=== PATIENT | male | born 1980 | race Caucasian/White ===

== ENCOUNTER 2019-08-08 13:31 | Inpatient (IN) | payer MEDICAID ==
[~2019-08-08] VITALS: Ht 193 cm; Wt 100.6 kg
[2019-08-08] MEDS ORDERED: LORazepam 2 MG/ML, 1ML ONE (15:07)
[2019-08-08] MEDS ORDERED: MORPHINE SULFATE 4 MG/ML, 1ML ONE (15:07)
[2019-08-08] MEDS ORDERED: LORazepam 2 MG/ML, 1ML IVPush STA (15:12)
[2019-08-08] MEDS ORDERED: MORPHINE SULFATE 4 MG/ML, 1ML IV PRN (15:30)
[2019-08-08] MEDS ORDERED: SODIUM CHLORIDE FLUSH 10ML SYR IVF ONE (15:30)
--- NOTE | 2019-08-08 15:39 | NUR ---
IV STARTED, LABS DRAWN, AT BEDSIDE. PT MEDICATED PER MAR. DENIES ANY FURTHER NEEDS OR CONCERNS AT THIS TIME.
[2019-08-08 15:57] LABS: BASOPHILS # (AUTO) 0.08 x10^3/uL (0-0.1); BASOPHILS % (AUTO) 1 % (0-1); EOSINOPHILS # (AUTO) 0.24 x10^3/uL (0-0.4); EOSINOPHILS % (AUTO) 2 % (1-7); LYMPHOCYTES # (AUTO) 3.11 x10^3/uL (1-3.4); LYMPHOCYTES % (AUTO) 20 % (22-44); MD NO; MEAN CORPUSCULAR HEMOGLOBIN 29.5 pg (27.5-34.5); MEAN CORPUSCULAR HGB CONC 33.1 g/dL (33.2-36.2); MEAN CORPUSCULAR VOLUME 89.1 fL (81-97); MEAN PLATELET VOLUME 6.9 fL (7.4-10.4); MONOCYTES # (AUTO) 0.95 x10^3/uL (0.2-0.8); MONOCYTES % (AUTO) 6 % (2-9); NEUTROPHILS # (AUTO) 10.99 x10^3/uL (1.8-6.8); NEUTROPHILS % (AUTO) 72 % (42-75); PLATELET COUNT 340 x10^3/uL (130-400); RED BLOOD COUNT 5.37 x10^6/uL (4.38-5.82); RED CELL DISTRIBUTION WIDTH 13.2 % (9.4-14.8)
[2019-08-08 16:07] LABS: ALBUMIN 3.9 g/dL (3.4-5.0); ANION GAP 7 mmol/L (5-15); CALCIUM 9.2 mg/dL (8.5-10.1); CHLORIDE 106 mmol/L (98-107)
[2019-08-08 16:08] LABS: CREATININE 1.01 mg/dL (0.7-1.3)
[2019-08-08] MEDS ORDERED: POLYETHYLENE GLYCOL 17 GM PACKET PO PRN (17:00)
[2019-08-08] MEDS ORDERED: ONDANSETRON ODT 4 MG PO PRN (17:00)
[2019-08-08] MEDS ORDERED: ONDANSETRON 2MG/ML, 2ML IVPush PRN (17:00)
--- NOTE | 2019-08-08 17:04 | NUR ---
PT IN BED, RESTING AT THIS TIME. DENIES ANY NEEDS OR CONCERNS.
--- NOTE | 2019-08-08 17:25 | NUR ---
REPORT CALLED TO ART SEWELL RN.
[2019-08-08 17:45] LABS: HCT (SEDRATE) 47.4 % (39.2-51.8)
[2019-08-08] MEDS: HYDROcodone/APAP 5/325 TABLET PO PRN (17:54)
[2019-08-08 20:00] VITALS: BP 124/80
[2019-08-08] MEDS: IBUPROFEN 200 MG TABLET PO SCH (20:52)
[2019-08-08] MEDS: NICOTINE 14MG/24 HR PATCH.TD24 TD SCH (20:52)
[2019-08-08] MEDS: ENOXAPARIN 40 MG/0.4 ML SQ SCH (20:52)
[2019-08-08] MEDS: PIPERACILLIN/TAZO/PMX 3.375GM 50 ML IV SCH (20:55)
[2019-08-09 02:48] VITALS: BP 118/58
[2019-08-09] MEDS: PIPERACILLIN/TAZO/PMX 3.375GM 50 ML IV SCH ×3 (04:54→22:10)
[2019-08-09 05:31] LABS: BASOPHILS # (AUTO) 0.05 x10^3/uL (0-0.1); BASOPHILS % (AUTO) 1 % (0-1); EOSINOPHILS # (AUTO) 0.51 x10^3/uL (0-0.4); EOSINOPHILS % (AUTO) 6 % (1-7); LYMPHOCYTES # (AUTO) 2.47 x10^3/uL (1-3.4); LYMPHOCYTES % (AUTO) 30 % (22-44); MD NO; MEAN CORPUSCULAR HEMOGLOBIN 29.5 pg (27.5-34.5); MEAN CORPUSCULAR HGB CONC 32.9 g/dL (33.2-36.2); MEAN CORPUSCULAR VOLUME 89.6 fL (81-97); MEAN PLATELET VOLUME 6.9 fL (7.4-10.4); MONOCYTES # (AUTO) 0.81 x10^3/uL (0.2-0.8); MONOCYTES % (AUTO) 10 % (2-9); NEUTROPHILS # (AUTO) 4.41 x10^3/uL (1.8-6.8); NEUTROPHILS % (AUTO) 54 % (42-75); PLATELET COUNT 307 x10^3/uL (130-400); RED BLOOD COUNT 5.22 x10^6/uL (4.38-5.82); RED CELL DISTRIBUTION WIDTH 13.4 % (9.4-14.8)
[2019-08-09 05:37] LABS: ANION GAP 8 mmol/L (5-15); CALCIUM 8.9 mg/dL (8.5-10.1); CHLORIDE 105 mmol/L (98-107)
[2019-08-09 08:19] VITALS: BP 112/71
[2019-08-09] MEDS: SENNA/DOCUSATE TABLET PO SCH (09:00)
[2019-08-09] MEDS: HYDROcodone/APAP 5/325 TABLET PO PRN (09:39)
[2019-08-09] MEDS: IBUPROFEN 200 MG TABLET PO SCH ×2 (09:39→22:10)
[2019-08-09] MEDS ORDERED: VANCOMYCIN PER PHARMACY MC PRN (12:30)
[2019-08-09] MEDS ORDERED: PHARMACOKINETIC MONITORING MC PRN (13:00)
[2019-08-09] MEDS ORDERED: PHARMACOKINETIC CONSULTATION MC ONE (13:00)
[2019-08-09] MEDS: GABAPENTIN 300 MG CAPSULE PO SCH ×3 (13:15→22:10)
[2019-08-09] MEDS: VANCOMYCIN 1,800 MG in SODIUM CHLORIDE 0.9% 250 ML IV SCH (14:50)
[2019-08-09 15:59] VITALS: BP 112/70
[2019-08-09 19:17] VITALS: BP 126/61
[2019-08-09] MEDS: NICOTINE 14MG/24 HR PATCH.TD24 TD SCH (21:00)
[2019-08-09] MEDS: ENOXAPARIN 40 MG/0.4 ML SQ SCH (22:10)
[2019-08-09] MEDS: OXYcodone/APAP 10/325MG TABLET PO PRN (22:15)
[2019-08-10 02:33] VITALS: BP 109/61
[2019-08-10] MEDS: VANCOMYCIN 1,800 MG in SODIUM CHLORIDE 0.9% 250 ML IV SCH ×2 (02:50→14:54)
[2019-08-10] MEDS: PIPERACILLIN/TAZO/PMX 3.375GM 50 ML IV SCH ×4 (04:53→22:35)
[2019-08-10 05:39] LABS: CREATININE 0.97 mg/dL (0.7-1.3)
[2019-08-10 08:00] VITALS: BP 113/68
[2019-08-10] MEDS: GABAPENTIN 300 MG CAPSULE PO SCH (08:50)
[2019-08-10] MEDS: IBUPROFEN 200 MG TABLET PO SCH ×2 (08:50→20:25)
[2019-08-10] MEDS: OXYcodone/APAP 10/325MG TABLET PO PRN ×3 (08:51→22:34)
[2019-08-10] MEDS: SENNA/DOCUSATE TABLET PO SCH (08:51)
[2019-08-10 11:45] VITALS: BP 113/68
[2019-08-10 14:42] VITALS: BP 109/60
[2019-08-10] MEDS: morphine SULFATE 10 MG/ML, 1ML IVPush PRN ×2 (16:24→20:24)
[2019-08-10] MEDS: GABAPENTIN 100 MG CAPSULE PO SCH ×2 (16:29→22:34)
[2019-08-10 18:51] VITALS: BP 111/62
[2019-08-10] MEDS: ENOXAPARIN 40 MG/0.4 ML SQ SCH (20:25)
[2019-08-10] MEDS: NICOTINE 14MG/24 HR PATCH.TD24 TD SCH (21:00)
[2019-08-11] MEDS: VANCOMYCIN 1,800 MG in SODIUM CHLORIDE 0.9% 250 ML IV SCH ×2 (02:27→14:41)
[2019-08-11 03:03] VITALS: BP 131/66
[2019-08-11] MEDS: PIPERACILLIN/TAZO/PMX 3.375GM 50 ML IV SCH ×4 (04:27→21:52)
[2019-08-11 07:06] VITALS: BP 125/72
[2019-08-11] MEDS: GABAPENTIN 300 MG CAPSULE PO SCH ×3 (08:09→21:24)
[2019-08-11] MEDS: SENNA/DOCUSATE TABLET PO SCH (08:10)
[2019-08-11] MEDS: IBUPROFEN 200 MG TABLET PO SCH ×2 (08:10→21:24)
[2019-08-11 12:46] VITALS: BP 126/69
[2019-08-11] MEDS: morphine SULFATE 10 MG/ML, 1ML IVPush PRN ×3 (12:52→19:51)
[2019-08-11 19:48] VITALS: BP 155/91
[2019-08-11] MEDS: NICOTINE 14MG/24 HR PATCH.TD24 TD SCH (21:00)
[2019-08-11] MEDS: ENOXAPARIN 40 MG/0.4 ML SQ SCH (21:24)
[2019-08-12 01:55] VITALS: BP 136/66
[2019-08-12] MEDS: VANCOMYCIN 1,800 MG in SODIUM CHLORIDE 0.9% 250 ML IV SCH ×2 (02:20→14:39)
[2019-08-12] MEDS: morphine SULFATE 10 MG/ML, 1ML IVPush PRN ×5 (03:20→20:36)
[2019-08-12] MEDS: PIPERACILLIN/TAZO/PMX 3.375GM 50 ML IV SCH ×4 (04:00→22:52)
[2019-08-12] MEDS: IBUPROFEN 200 MG TABLET PO SCH ×2 (07:49→20:27)
[2019-08-12] MEDS: SENNA/DOCUSATE TABLET PO SCH (07:49)
[2019-08-12] MEDS: GABAPENTIN 300 MG CAPSULE PO SCH ×3 (07:49→20:27)
[2019-08-12 08:05] VITALS: BP 125/75
[2019-08-12 14:11] VITALS: BP 129/73
[2019-08-12 20:04] VITALS: BP 128/71
[2019-08-12] MEDS: ENOXAPARIN 40 MG/0.4 ML SQ SCH (20:28)
[2019-08-12] MEDS: NICOTINE 14MG/24 HR PATCH.TD24 TD SCH (20:28)
[2019-08-13 01:29] VITALS: BP 123/67
[2019-08-13] MEDS: morphine SULFATE 10 MG/ML, 1ML IVPush PRN ×5 (01:46→20:11)
[2019-08-13] MEDS: VANCOMYCIN 1,800 MG in SODIUM CHLORIDE 0.9% 250 ML IV SCH ×2 (02:34→14:35)
[2019-08-13] MEDS: PIPERACILLIN/TAZO/PMX 3.375GM 50 ML IV SCH ×4 (05:21→22:27)
[2019-08-13] MEDS: GABAPENTIN 300 MG CAPSULE PO SCH ×3 (07:46→20:09)
[2019-08-13] MEDS: IBUPROFEN 200 MG TABLET PO SCH ×2 (07:46→20:09)
[2019-08-13] MEDS: SENNA/DOCUSATE TABLET PO SCH (08:21)
[2019-08-13 08:22] VITALS: BP 111/72
[2019-08-13 14:35] VITALS: BP 116/66
[2019-08-13 20:01] VITALS: BP 119/66
[2019-08-13] MEDS: ENOXAPARIN 40 MG/0.4 ML SQ SCH (20:10)
[2019-08-13] MEDS: NICOTINE 14MG/24 HR PATCH.TD24 TD SCH (20:15)
[2019-08-13] MEDS: OXYcodone/APAP 10/325MG TABLET PO PRN (22:28)
[2019-08-14 01:47] VITALS: BP 112/62
[2019-08-14] MEDS: VANCOMYCIN 1,800 MG in SODIUM CHLORIDE 0.9% 250 ML IV SCH ×2 (02:41→14:39)
[2019-08-14] MEDS: morphine SULFATE 10 MG/ML, 1ML IVPush PRN ×6 (02:50→22:32)
[2019-08-14] MEDS: PIPERACILLIN/TAZO/PMX 3.375GM 50 ML IV SCH ×4 (04:21→22:16)
[2019-08-14 08:02] VITALS: BP 112/71
[2019-08-14] MEDS: SENNA/DOCUSATE TABLET PO SCH (08:21)
[2019-08-14] MEDS: IBUPROFEN 200 MG TABLET PO SCH ×2 (08:22→20:44)
[2019-08-14] MEDS: GABAPENTIN 300 MG CAPSULE PO SCH ×3 (08:22→20:43)
[2019-08-14] MEDS: OXYcodone/APAP 10/325MG TABLET PO PRN (14:40)
[2019-08-14 15:15] VITALS: BP 121/64
[2019-08-14 18:55] VITALS: BP 113/60
[2019-08-14] MEDS: ENOXAPARIN 40 MG/0.4 ML SQ SCH (20:44)
[2019-08-14] MEDS: NICOTINE 14MG/24 HR PATCH.TD24 TD SCH (20:44)
[2019-08-15 01:29] VITALS: BP 106/66
[2019-08-15] MEDS: morphine SULFATE 10 MG/ML, 1ML IVPush PRN ×6 (01:39→20:40)
[2019-08-15] MEDS: VANCOMYCIN 1,800 MG in SODIUM CHLORIDE 0.9% 250 ML IV SCH (02:05)
[2019-08-15 02:28] LABS: ALANINE AMINOTRANSFERASE 124 U/L (12-78); ALBUMIN 3.1 g/dL (3.4-5.0); ANION GAP 5 mmol/L (5-15); CALCIUM 8.9 mg/dL (8.5-10.1); CHLORIDE 109 mmol/L (98-107); CREATININE 1.15 mg/dL (0.7-1.3)
[2019-08-15 02:30] LABS: ALKALINE PHOSPHATASE 82 U/L (45-117); BILIRUBIN,TOTAL 0.3 mg/dL (0.2-1.0); TOTAL PROTEIN 6.7 g/dL (6.4-8.2)
[2019-08-15 02:35] LABS: BASOPHILS # (AUTO) 0.11 x10^3/uL (0-0.1); BASOPHILS % (AUTO) 1 % (0-1); EOSINOPHILS % (AUTO) 6 % (1-7); LYMPHOCYTES % (AUTO) 35 % (22-44); MD NO; MEAN CORPUSCULAR HEMOGLOBIN 29.7 pg (27.5-34.5); MEAN CORPUSCULAR HGB CONC 32.8 g/dL (33.2-36.2); MEAN CORPUSCULAR VOLUME 90.6 fL (81-97); MEAN PLATELET VOLUME 6.8 fL (7.4-10.4); MONOCYTES # (AUTO) 0.58 x10^3/uL (0.2-0.8); MONOCYTES % (AUTO) 7 % (2-9); NEUTROPHILS # (AUTO) 4.27 x10^3/uL (1.8-6.8); NEUTROPHILS % (AUTO) 51 % (42-75); PLATELET COUNT 283 x10^3/uL (130-400); RED BLOOD COUNT 4.97 x10^6/uL (4.38-5.82); RED CELL DISTRIBUTION WIDTH 13.7 % (9.4-14.8)
[2019-08-15] MEDS: OXYcodone/APAP 10/325MG TABLET PO PRN ×2 (04:19→14:23)
[2019-08-15] MEDS: PIPERACILLIN/TAZO/PMX 3.375GM 50 ML IV SCH ×2 (04:35→10:13)
[2019-08-15 07:39] VITALS: BP 112/64
[2019-08-15] MEDS: SENNA/DOCUSATE TABLET PO SCH (09:00)
[2019-08-15] MEDS: GABAPENTIN 300 MG CAPSULE PO SCH ×3 (10:12→20:39)
[2019-08-15] MEDS: IBUPROFEN 200 MG TABLET PO SCH (10:12)
[2019-08-15] MEDS: NICOTINE 7 MG/24 HR PATCH.TD24 TD SCH (13:30)
[2019-08-15 13:33] VITALS: BP 113/65
[2019-08-15 18:58] VITALS: BP 124/69
[2019-08-15] MEDS: ENOXAPARIN 40 MG/0.4 ML SQ SCH (20:39)
[2019-08-16] MEDS: morphine SULFATE 10 MG/ML, 1ML IVPush PRN ×7 (01:06→22:35)
[2019-08-16 01:41] VITALS: BP 124/64
[2019-08-16 07:05] LABS: BASOPHILS % (AUTO) 1 % (0-1); EOSINOPHILS # (AUTO) 0.38 x10^3/uL (0-0.4); EOSINOPHILS % (AUTO) 4 % (1-7); LYMPHOCYTES # (AUTO) 2.42 x10^3/uL (1-3.4); LYMPHOCYTES % (AUTO) 27 % (22-44); MD NO; MEAN CORPUSCULAR HEMOGLOBIN 29.8 pg (27.5-34.5); MEAN CORPUSCULAR HGB CONC 33.5 g/dL (33.2-36.2); MEAN CORPUSCULAR VOLUME 88.8 fL (81-97); MEAN PLATELET VOLUME 6.8 fL (7.4-10.4); MONOCYTES % (AUTO) 7 % (2-9); NEUTROPHILS # (AUTO) 5.44 x10^3/uL (1.8-6.8); NEUTROPHILS % (AUTO) 61 % (42-75); PLATELET COUNT 250 x10^3/uL (130-400); RED BLOOD COUNT 4.93 x10^6/uL (4.38-5.82); RED CELL DISTRIBUTION WIDTH 13.7 % (9.4-14.8)
[2019-08-16 07:06] LABS: CHLORIDE 109 mmol/L (98-107)
[2019-08-16 07:14] LABS: ALANINE AMINOTRANSFERASE 132 U/L (12-78); ALBUMIN 3.2 g/dL (3.4-5.0); ALKALINE PHOSPHATASE 80 U/L (45-117); ANION GAP 6 mmol/L (5-15); BILIRUBIN,TOTAL 0.3 mg/dL (0.2-1.0); CALCIUM 8.9 mg/dL (8.5-10.1); CREATININE 0.96 mg/dL (0.7-1.3); TOTAL PROTEIN 6.9 g/dL (6.4-8.2)
[2019-08-16 07:25] VITALS: BP 118/68
[2019-08-16] MEDS: SENNA/DOCUSATE TABLET PO SCH (08:02)
[2019-08-16] MEDS: NICOTINE 7 MG/24 HR PATCH.TD24 TD SCH (08:02)
[2019-08-16] MEDS: GABAPENTIN 300 MG CAPSULE PO SCH ×3 (08:48→21:09)
[2019-08-16 14:55] VITALS: BP 136/61
[2019-08-16 19:26] VITALS: BP 133/73
[2019-08-16] MEDS: ENOXAPARIN 40 MG/0.4 ML SQ SCH (21:09)
[2019-08-17 00:53] VITALS: BP 117/68
[2019-08-17] MEDS: morphine SULFATE 10 MG/ML, 1ML IVPush PRN ×3 (02:57→20:36)
[2019-08-17 07:16] VITALS: BP 112/72
[2019-08-17] MEDS: SENNA/DOCUSATE TABLET PO SCH (07:31)
[2019-08-17] MEDS: NICOTINE 7 MG/24 HR PATCH.TD24 TD SCH (07:32)
[2019-08-17] MEDS: OXYcodone/APAP 10/325MG TABLET PO PRN ×3 (08:56→22:41)
[2019-08-17] MEDS: GABAPENTIN 300 MG CAPSULE PO SCH ×3 (08:56→20:36)
[2019-08-17 14:32] VITALS: BP 126/67
[2019-08-17 18:28] VITALS: BP 122/70
[2019-08-17] MEDS: ENOXAPARIN 40 MG/0.4 ML SQ SCH (20:36)
[2019-08-18 01:02] VITALS: BP 113/70
[2019-08-18] MEDS: GABAPENTIN 300 MG CAPSULE PO SCH ×3 (07:43→21:24)
[2019-08-18 08:23] VITALS: BP 113/69
[2019-08-18] MEDS: SENNA/DOCUSATE TABLET PO SCH (08:36)
[2019-08-18] MEDS: NICOTINE 7 MG/24 HR PATCH.TD24 TD SCH (13:13)
[2019-08-18] MEDS: OXYcodone/APAP 10/325MG TABLET PO PRN ×2 (13:15→19:28)
[2019-08-18 15:34] VITALS: BP 113/68
[2019-08-18] MEDS: morphine SULFATE 10 MG/ML, 1ML IVPush PRN (16:02)
[2019-08-18 20:00] VITALS: BP 142/71
[2019-08-18] MEDS: ENOXAPARIN 40 MG/0.4 ML SQ SCH (21:24)
[2019-08-19] MEDS: OXYcodone/APAP 10/325MG TABLET PO PRN ×3 (01:34→21:25)
[2019-08-19 01:38] VITALS: BP 126/67
[2019-08-19 07:35] VITALS: BP 132/76
[2019-08-19] MEDS: GABAPENTIN 300 MG CAPSULE PO SCH ×3 (08:19→21:24)
[2019-08-19] MEDS: SENNA/DOCUSATE TABLET PO SCH (08:20)
[2019-08-19] MEDS: IBUPROFEN 200 MG TABLET PO PRN (09:34)
[2019-08-19] MEDS: morphine SULFATE 10 MG/ML, 1ML IVPush PRN (12:56)
[2019-08-19 13:23] VITALS: BP 114/65
[2019-08-19] MEDS: NICOTINE 7 MG/24 HR PATCH.TD24 TD SCH (13:30)
[2019-08-19] MEDS: MULTIVITAMIN 1 TABLET PO SCH (16:59)
[2019-08-19 20:29] VITALS: BP 113/71
[2019-08-19] MEDS: ENOXAPARIN 40 MG/0.4 ML SQ SCH (21:25)
[2019-08-20 03:24] VITALS: BP 104/87
[2019-08-20] MEDS: SENNA/DOCUSATE TABLET PO SCH (07:15)
[2019-08-20 07:39] VITALS: BP 112/62
[2019-08-20] MEDS: GABAPENTIN 300 MG CAPSULE PO SCH ×3 (08:37→21:04)
[2019-08-20] MEDS: MULTIVITAMIN 1 TABLET PO SCH (08:37)
[2019-08-20] MEDS: OXYcodone/APAP 10/325MG TABLET PO PRN ×3 (08:38→21:29)
[2019-08-20] MEDS: NICOTINE 7 MG/24 HR PATCH.TD24 TD SCH (10:26)
[2019-08-20] MEDS: morphine SULFATE 10 MG/ML, 1ML IVPush PRN (10:50)
[2019-08-20 12:58] VITALS: BP 112/70
[2019-08-20] MEDS: IBUPROFEN 200 MG TABLET PO PRN (13:59)
[2019-08-20 20:05] VITALS: BP 115/65
[2019-08-20] MEDS: ENOXAPARIN 40 MG/0.4 ML SQ SCH (21:04)
[2019-08-21 01:11] VITALS: BP 103/64
[2019-08-21 07:53] VITALS: BP 119/69
[2019-08-21] MEDS: GABAPENTIN 300 MG CAPSULE PO SCH ×3 (08:20→20:43)
[2019-08-21] MEDS: MULTIVITAMIN 1 TABLET PO SCH (08:21)
[2019-08-21] MEDS: OXYcodone/APAP 10/325MG TABLET PO PRN ×3 (08:21→21:08)
[2019-08-21] MEDS: SENNA/DOCUSATE TABLET PO SCH (08:39)
[2019-08-21] MEDS: morphine SULFATE 10 MG/ML, 1ML IVPush PRN (10:38)
[2019-08-21 12:12] VITALS: BP 114/68
[2019-08-21] MEDS: IBUPROFEN 200 MG TABLET PO PRN (13:16)
[2019-08-21] MEDS: NICOTINE 7 MG/24 HR PATCH.TD24 TD SCH ×2 (13:30→21:10)
[2019-08-21] MEDS: ACETAMINOPHEN 325 MG TABLET PO PRN (17:54)
[2019-08-21 18:38] VITALS: BP 107/63
[2019-08-21] MEDS: ENOXAPARIN 40 MG/0.4 ML SQ SCH (20:43)
[2019-08-22 00:17] VITALS: BP 103/52
[2019-08-22] MEDS: ACETAMINOPHEN 325 MG TABLET PO PRN (00:20)
[2019-08-22 08:10] VITALS: BP 113/70
[2019-08-22] MEDS: SENNA/DOCUSATE TABLET PO SCH (09:00)
[2019-08-22] MEDS: GABAPENTIN 300 MG CAPSULE PO SCH ×2 (09:16→16:02)
[2019-08-22] MEDS: MULTIVITAMIN 1 TABLET PO SCH (09:16)
[2019-08-22] MEDS: OXYcodone/APAP 10/325MG TABLET PO PRN ×2 (09:17→16:03)
[2019-08-22] MEDS: morphine SULFATE 10 MG/ML, 1ML IVPush PRN ×2 (11:04→14:27)
[2019-08-22] MEDS ORDERED: GABA300C10 PO (12:18)
[2019-08-22] MEDS ORDERED: MULT1TAB60 PO (12:18)
[2019-08-22] MEDS ORDERED: OXYC-432 PO (12:18)
[2019-08-22] MEDS ORDERED: SENN-193 PO (12:18)
[2019-08-22] MEDS ORDERED: IBUP-1902 PO (12:18)
[2019-08-22] MEDS ORDERED: NICO-485 TD (12:18)
[2019-08-22 13:03] VITALS: BP 117/72
== END 2019-08-22 17:52 | disposition left against medical advice (07) | DRG 923 ==
LOC: ED 16:15 → EDIP 16:16 → ED 16:54 → 3N 17:43
PROVIDERS: ADMIT Internal Medicine; ATTEND Family Medicine
DX: T33.821A Superficial frostbite of right foot, initial encounter (principal); B19.20 Unspecified viral hepatitis C without hepatic coma; T33.822A Superficial frostbite of left foot, initial encounter; T33.831A Superficial frostbite of right toe(s), initial encounter; T33.832A Superficial frostbite of left toe(s), initial encounter; D72.829 Elevated white blood cell count, unspecified; F12.90 Cannabis use, unspecified, uncomplicated; F15.90 Other stimulant use, unspecified, uncomplicated; F17.210 Nicotine dependence, cigarettes, uncomplicated; F19.10 Other psychoactive substance abuse, uncomplicated; Z59.0 Homelessness; Z53.29 Procedure and treatment not carried out because of patient's decision for other reasons; X31.XXXA Exposure to excessive natural cold, initial encounter; Y93.89 Activity, other specified; Y92.89 Other specified places as the place of occurrence of the external cause; Y99.8 Other external cause status
CPT/HCPCS: 36415; 80048; 80053; 80202; 82040; 82565; 83036; 84145; 84520; 85025; 85651; 86140; 86803; 87081; 87521; 87806; 93922; 99285; G0378; J1650; J2543; J3370; G0475; J2060; J2270; J7050